=== PATIENT | male | born 1955 | race Caucasian/White ===

== ENCOUNTER 2017-06-23 15:57 | Inpatient (IN) | payer OTHER ==
[~2017-06-23] VITALS: Ht 182.9 cm; Wt 99.4 kg
[2017-06-23 19:51] LABS: BASOPHIL # 0.1 10^3/ul (0.0-0.1); BASOPHILS % 0.9 % (0.0-2.0); EOSINOPHILS # 0.3 10^3/ul (0.0-0.5); EOSINOPHILS % 3.4 % (0.0-7.0); HEMATOCRIT 40.8 % (42.0-52.0); HEMOGLOBIN 12.8 g/dl (14.0-18.0); LYMPHOCYTES # 2.1 10^3/ul (0.8-2.9); LYMPHOCYTES % 27.1 % (15.0-51.0); MEAN CORPUSCULAR HEMOGLOBIN 26.2 pg (29.0-33.0); MEAN CORPUSCULAR HGB CONC 31.4 g/dl (32.0-37.0); MEAN CORPUSCULAR VOLUME 83.4 fl (82.0-101.0); MEAN PLATELET VOLUME 10.7 fl (7.4-10.4); MONOCYTE # 0.5 10^3/ul (0.3-0.9); MONOCYTES % 6.6 % (0.0-11.0); NEUTROPHIL # 4.8 10^3/ul (1.6-7.5); NEUTROPHILS % 61.7 % (39.0-77.0); PLATELET COUNT 247 10^3/UL (140-415); RED BLOOD COUNT 4.89 10^6/ul (4.70-6.10); WHITE BLOOD COUNT 7.8 10^3/ul (4.8-10.8)
[2017-06-23 20:19] LABS: CALCIUM 9.1 mg/dl (8.4-10.2); CREATININE 1.03 mg/dl (0.61-1.24); POTASSIUM 4.4 mmol/L (3.5-5.1)
--- NOTE | 2017-06-23 20:21 | RADRPT ---
PROCEDURE: XR Chest. CLINICAL INDICATION: Chest Pain. TECHNIQUE: Single frontal view of the chest was obtained COMPARISON: None FINDINGS: The heart is enlarged. There is mild pulmonary vascular congestion. No focal consolidations, pleural effusions, or pneumoth orax. Chronic appearing left-sided rib fractures are present. Degenerative changes of the spine and should er joints are noted. IMPRESSION: 1. Cardiomegaly with mild pulmonary vascular congestion. RPTAT:AAJJ Physician Bryant Date Time Electronically viewed and signed by Physician Bryant on 06/23/2017 20:21 QL/
[2017-06-23 20:24] LABS: URINE BLOOD (Dip) POC Trace-lysed (NEGATIVE)
[2017-06-23 20:31] LABS: TROPONIN-I 0.032 ng/ml (0.00-0.12)
[2017-06-23 20:50] LABS: ADD UMIC YES; UR ASCORBIC ACID NEGATIVE (NEGATIVE); UR BACTERIA FEW /HPF (NONE SEEN); UR BILIRUBIN (Dip) NEGATIVE (NEGATIVE); UR BLOOD (Dip) NEGATIVE (NEGATIVE); UR CLARITY CLEAR (CLEAR); UR COLOR YELLOW (YELLOW); UR GLUCOSE (Dip) NEGATIVE (NEGATIVE); UR KETONES (Dip) NEGATIVE (NEGATIVE); UR LEUKOCYTE ESTERASE (Dip) NEGATIVE Leu/ul (NEGATIVE); UR MUCUS FEW /HPF (NONE SEEN); UR NITRITE (Dip) NEGATIVE (NEGATIVE); UR RBC 2 /HPF (0-5); UR SPECIFIC GRAVITY (Dip) 1.015 (1.003-1.030); UR TOTAL PROTEIN (Dip) 1+ mg/dl (NEGATIVE); UR UROBILINOGEN (Dip) 1+ mg/dL (NEGATIVE)
[2017-06-23] MEDS ORDERED: FUROSEMIDE 20 MG INJ IV ONE ×2 (21:30→22:30)
[2017-06-23] MEDS ORDERED: ACETAMINOPHEN 325 MG TAB PO PRN ×2 (22:30→23:00)
[2017-06-23] MEDS ORDERED: ONDANSETRON 4 MG INJ IV PRN (22:30)
--- NOTE | 2017-06-23 22:44 | ERD ---
ER Documentation Chief Complaint Chief Complaint Sob x 2 days, denies CP HPI This 62-year-old male presents for increasing shortness of breath for the last 2 days. He is taking Advil for chronic bilateral leg pain but does not have any other medications does not have primary care follow-up. As of breath is worse when laying down on exertion. He has no prior diagnosis of congestive heart failure. Denies chest pain. ROS All systems reviewed and are negative except as per history of present illness. Medications Home Meds No Active Prescriptions or Reported Meds Allergies Allergies: Coded Allergies: No Known Allergy (Unverified , 06/23/17) PMhx/Soc Medical and Surgical Hx: pt denies Medical Hx, pt denies Surgical Hx History of Surgery: No Anesthesia Reaction: No Hx Neurological Disorder: No Hx Respiratory Disorders: No Hx Cardiac Disorders: No Hx Psychiatric Problems: No Hx Miscellaneous Medical Probl: No Hx Alcohol Use: No Hx Substance Use: No Hx Tobacco Use: No Smoking Status: Former smoker Physical Exam Vitals Vital Signs Date Time Temp Pulse Resp B/P Pulse Ox O2 Delivery O2 Flow Rate FiO2 06/23/17 22:00 103 21 183/92 99 Nasal Cannula 2.0 06/23/17 21:30 94 19 149/84 99 Nasal Cannula 2.0 06/23/17 21:00 92 21 163/94 99 Nasal Cannula 2.0 06/23/17 20:09 Nasal Cannula 2 06/23/17 20:00 Nasal Cannula 2.0 06/23/17 19:55 98 23 182/93 99 Room Air 06/23/17 19:44 100 188/99 06/23/17 19:30 98.6 103 24 191/97 99 Room Air 06/23/17 16:19 99.3 105 20 192/88 98 Physical Exam Const: [] Mild distress, appears uncomfortable Head: Atraumatic Eyes: Normal Conjunctiva ENT: Normal External Ears, Nose and Mouth. Mucous membranes slightly dry Neck: Full range of motion..~ No meningismus. Resp: Clear to auscultation bilaterally, mild tachypnea Cardio: Regular rate and rhythm, no murmurs Abd: Soft, non tender, non distended. Normal bowel sounds Skin: No petechiae or rashes Back: No midline or flank tenderness Ext: No cyanosis, or edema Neur: Awake and alert oriented 3, no focal deficits Psych: Normal Mood and Affect Result Diagram: 06/23/17193906/23/171939 Results 24 hrs Laboratory Tests Test 06/23/17 19:40 06/23/17 20:15 06/23/17 20:23 White Blood Count 7.810^3/ul Red Blood Count 4.8910^6/ul Hemoglobin 12.8g/dl Hematocrit 40.8% Mean Corpuscular Volume 83.4fl Mean Corpuscular Hemoglobin 26.2pg Mean Corpuscular Hemoglobin Concent 31.4g/dl Red Cell Distribution Width 17.0% Platelet Count 21289^3/UL Mean Platelet Volume 10.7fl Neutrophils % 61.7% Lymphocytes % 27.1% Monocytes % 6.6% Eosinophils % 3.4% Basophils % 0.9% Nucleated Red Blood Cells % 0.0/100WBC Neutrophils # 4.810^3/ul Lymphocytes # 2.110^3/ul Monocytes # 0.510^3/ul Eosinophils # 0.310^3/ul Basophils # 0.110^3/ul Nucleated Red Blood Cells # 0.010^3/ul Sodium Level 142mmol/L Potassium Level 4.4mmol/L Chloride Level 108mmol/L Carbon Dioxide Level 24mmol/L Anion Gap 14 Blood Urea Nitrogen 15mg/dl Creatinine 1.03mg/dl Glucose Level 94mg/dl Calcium Level 9.1mg/dl Troponin I 0.032ng/ml B-Type Natriuretic Peptide 1810PG/ML Urine Color YELLOW Urine Clarity CLEAR Urine pH 6.0 Urine Specific [place] 1.015 Urine Ketones NEGATIVEmg/dL Urine Nitrite NEGATIVEmg/dL Urine Bilirubin NEGATIVEmg/dL Urine Urobilinogen 1+mg/dL Urine Leukocyte Esterase NEGATIVELeu/ul Urine Microscopic RBC 2/HPF Urine Microscopic WBC 1/HPF Urine Bacteria FEW/HPF Urine Mucus FEW/HPF Urine Hemoglobin NEGATIVEmg/dL Urine Glucose NEGATIVEmg/dL Urine Total Protein 1+mg/dl Bedside Urine pH (LAB) 6.0 Bedside Urine Protein (LAB) 1+ Bedside Urine Glucose (UA) Negative Bedside Urine Ketones (LAB) Negative Bedside Urine Blood Trace-lysed Bedside Urine Nitrite (LAB) Negative Bedside Urine Leukocyte Esterase (L Negative Current Medications Medications (Trade) Dose Ordered Sig/Froy Route PRN Reason Start Time Stop Time Status Last Admin Dose Admin Furosemide (Lasix) 20 mg ONCE ONCE IV 12/12/17 21:30 06/23/17 21:31 DC 06/23/17 21:51 Ondansetron HCl (Zofran Inj) 4 mg ER BRIDGE PRN IV NAUSEA AND/OR VOMITING 06/23/17 22:30 06/24/17 22:29 Acetaminophen (Tylenol Tab) 650 mg ER BRIDGE PRN PO MILD PAIN/FEVER 06/23/17 22:30 06/24/17 22:29 Furosemide (Lasix) 20 mg ONCE ONCE IV 06/23/17 22:30 06/23/17 22:31 DC Procedures/MDM Acute onset congestive heart failure patient with poor medical follow-up. Elevated BNP and evidence of congestive heart failure and chest x-ray. Patient given 20 mg of Lasix which produced no urine after an hour. Is also hypertensive with no prior diagnosis of hypertension. Blood pressure is not high enough to acutely lower with IV medications. Patient will be admitted for telemetry monitoring. On reassessment patient said he is actually had abdominal pain as well in his lower abdomen on standing. I have added on liver function tests, lipase and abdominal x-ray. Dr. Momin is admitting to telemetry. EKG interpretation: Sinus tachycardia rate 107, normal axis, no ST or T-wave changes concerning for acute ischemia, LVH, abnormal EKG tower erector helper interpretation: Normal sinus rhythm arrhythmia Chest x-ray interpretation: Engorgement of pulmonary vasculature consistent with congestive heart failure, cardiomegaly, no pneumothorax, no fractures, no infiltrates. Departure Diagnosis: Primary Impression: New onset of congestive heart failure Additional Impression: Respiratory distress Condition: Serious SOURAV VINES DO Jun 23, 2017 22:43
[2017-06-23] MEDS ORDERED: NACL 0.9% 3 ML SYG IV SCH (23:00)
[2017-06-23] MEDS ORDERED: ONDANSETRON 4 MG TAB PO PRN (23:00)
[2017-06-23] MEDS ORDERED: NITROGLYCERIN (SL) 0.4 MG TAB SL PRN (23:00)
[2017-06-23 23:04] LABS: BILIRUBIN,INDIRECT 0.9 mg/dl (0-1.1); BILIRUBIN,TOTAL 0.9 mg/dl (0.2-1.3); TOTAL PROTEIN 7.8 g/dl (6.1-8.1)
--- NOTE | 2017-06-23 23:44 | RADRPT ---
PROCEDURE: ABDOMINAL - 3 VIEWS CLINICAL INDICATION: 62-year-old male with lower abdominal pain. TECHNIQUE: AP supine and upright views of the abdomen were obtained. The images reviewed on a PA UGE workstation. COMPARISON: None. FINDINGS: The partially visualized lung bases are unremarkable. There is no free air beneath the hemidiaphragm s. The lateral aspect of the abdomen are not completely on the radiograph there is prominent gas wit hin the transverse colon without an obstructive pattern. No significant air-fluid levels are noted. Phleboliths are present within the pelvis. Mild degenerative changes are seen within the spine. IMPRESSION: 1. No evidence for bowel obstruction. 2. Degenerative changes within the spine. .Silvino Belcher MD, MD Date Time Electronically viewed and signed by .Silvino Belcher MD, MD on 06/23/2017 23:44 .M/
[2017-06-24] VITALS (13 sets, daily range): BP systolic 137–152; BP diastolic 71–84; PULSE 79–95; RESP 16–20; TEMP 98.5; Ht 182.9 cm; Wt 99.4 kg
--- NOTE | 2017-06-24 03:05 | HP ---
Date/Time of Note Date/Time of Note DATE: 06/24/17 TIME: 02:55 Assessment/Plan VTE Prophylaxis VTE Prophylaxis Intervention: SCD's Lines/Catheters IV [facility]from [facility] Saline Lock Assessment/Plan Chief Complaint/Hosp Course This is a 62 year old male being admitted to the telemetry floor for: #1 Dyspnea on exertion: suspected new onset chf. Afebrile and normal wbc count, making infection less likely. Elevated BNP of 1800 with cxr showing some evidence of congestion. He received two dose of Lasix 20 mg IV in the ed. He has been diuresing. At the current time his lungs are clear to auscultation and no edema noted of the lower extremities. Will continue fluid restriction. Will put patient on low salt diet. Initiate lisinopril 10mg once daily. Echo in the am. I do believe he is close to being euovolemic, so will reassess patient in AM before giving additional lasix dose. Consult cardio. Monitor urine output, fluid restriction of 1200 cc daily. Will check a1c, lipid, tsh. Trend cardiac enzymes first set was negative. #2 Dvt and gi prophylaxis: scds, no gi prophylaxis indicated Further treatment strategy will be implemented as per the clinical course. Problems: HPI/ROS Admit Date/Time Admit Date/Time Jun 23, 2017 at 22:24 Hx of Present Illness cc: chest pain, sob This 62-year-old male presents for increasing shortness of breath for the last 2 days. He is taking Advil for chronic bilateral leg pain but does not have any other medications does not have primary care follow-up. As of breath is worse when laying down and on exertion. Denies any swelling in his feet. Does not have any prior history of cardiac issues. He also was coughing, non productive. Denies any fevers allergies: nkda meds: advil ROS Const: As per HPI Eyes : No pain discharge or redness or change in visual acuity ENT: No pain, sore throat, congestion, congestion, dysphagia or discharge Respiratory: As per HPI Cardiovascular: As per HPI GI : no change in appetite, abdominal pain, nausea, vomiting, diarrhea, constipation, or change in the color his stool Genitourinary: No dysuria, hematuria, flank pain , discharge or CVA tenderness Musculoskeletal: No joint pain, back pain, neck pain, restricted range of motion in neck or joints Skin: No rash, bruising or hives Neuro: No headache, dizziness, syncope, seizure, focal weakness Endocrine: No polyuria, polydipsia, temperature intolerance Psych: No hallucination, depression, anxiety or suicidal ideation PMH/Family/Social Past Medical History chronic low back pain Past Surgical History Past Surgical Hx: no surgical history Family History Significant Family History: no pertinent family hx Social History Smoking Status: Current some day smoker Drug Use: none Exam/Review of Systems Vital Signs Vitals Vital Signs Date Time Temp Pulse Resp B/P Pulse Ox O2 Delivery O2 Flow Rate FiO2 06/24/17 02:49 97.6 89 20 137/71 99 Nasal Cannula 2.0 Exam Exam General: Patient is well-developed well-nourished The patient is alert oriented -3 lying comfortably in bed. HEENT: Atraumatic, normocephalic. The pupils are equal, round and reactive. Extraocular motor are intact Neck: Supple with full range of motion. No rigidity or meningismus Chest: Nontender Lungs: Clear to auscultation bilaterally no crackles rales or wheezing Heart: Normal S1-S2, Regular rhythm and rate, no overt murmurs appreciated Abdomen: Soft , nontender, nondistended , bowel sounds are present. No guarding no rebound tenderness , No masses or organomegaly. No costovertebral temporal angle mass Extremities: Normal to inspection, no edema no cyanosis Neurologic: Normal mental status, speech normal, cranial nerves II through XII are intact, motor and sensory are intact, no focal weakness Additional Comments PROCEDURE: XR Chest. CLINICAL INDICATION: Chest Pain. TECHNIQUE: Single frontal view of the chest was obtained COMPARISON: None FINDINGS: The heart is enlarged. There is mild pulmonary vascular congestion. No focal consolidations, pleural effusions, or pneumothorax. Chronic appearing left-sided rib fractures are present. Degenerative changes of the spine and shoulder joints are noted. IMPRESSION: 1. Cardiomegaly with mild pulmonary vascular congestion. RPTAT:AAJJ Physician Bryant Date Time Electronically viewed and signed by Yary Vasquez Physician on 06/23/2017 20:21 QL/ CC: SOURAV VINES DO EKG: Sinus tachycardia rate 107, normal axis, no ST or T-wave changes concerning for acute ischemia, LVH, above as per ED physician documentationROCEDURE: ABDOMINAL - 3 VIEWS CLINICAL INDICATION: 62-year-old male with lower abdominal pain. TECHNIQUE: AP supine and upright views of the abdomen were obtained. The images reviewed on a PACS workstation. COMPARISON: None. FINDINGS: The partially visualized lung bases are unremarkable. There is no free air beneath the hemidiaphragms. The lateral aspect of the abdomen are not completely on the radiograph there is prominent gas within the transverse colon without an obstructive pattern. No significant air-fluid levels are noted. Phleboliths are present within the pelvis. Mild degenerative changes are seen within the spine. IMPRESSION: 1. No evidence for bowel obstruction. 2. Degenerative changes within the spine. .Silvino Belcher MD, MD Date Time Electronically viewed and signed by .Silvino Belcher MD, MD on 06/23/2017 23:44 .M/ CC: SOURAV VINES DO Labs Result Diagram: 06/23/17193906/23/171939 Medications Medications Current Medications Ondansetron HCl (Zofran Tab) 4 mg Q6H PRN PO NAUSEA AND/OR VOMITING; Start 06/28 at 23:00 Nitroglycerin (Nitroglycerin (Sl Tab) 0.4 Mg) 1 tab Q5M PRN SL CHEST PAIN; Start 06/23/17 at 23:00 Acetaminophen (Tylenol Tab) 650 mg Q6H PRN PO PAIN LEVEL 1-3 OR FEVER; Start 06/23/17 at 23:00 Lisinopril (Zestril) 10 mg DAILY PO ; Start 06/24/17 at 09:00 EZEQUIEL FLORES Jun 24, 2017 03:04
[2017-06-24 04:09] LABS: CK-MB 1.39 ng/ml (0.0-2.4); TROPONIN-I 0.027 ng/ml (0.00-0.12)
[2017-06-24] MEDS: LISINOPRIL 10 MG TAB PO SCH (08:41)
[2017-06-24 09:36] LABS: BASOPHIL # 0.1 10^3/ul (0.0-0.1); BASOPHILS % 0.9 % (0.0-2.0); EOSINOPHILS # 0.3 10^3/ul (0.0-0.5); EOSINOPHILS % 3.9 % (0.0-7.0); HEMATOCRIT 41.9 % (42.0-52.0); HEMOGLOBIN 12.9 g/dl (14.0-18.0); LYMPHOCYTES # 1.4 10^3/ul (0.8-2.9); LYMPHOCYTES % 22.3 % (15.0-51.0); MEAN CORPUSCULAR HEMOGLOBIN 25.9 pg (29.0-33.0); MEAN CORPUSCULAR HGB CONC 30.8 g/dl (32.0-37.0); MEAN PLATELET VOLUME 10.6 fl (7.4-10.4); MONOCYTE # 0.5 10^3/ul (0.3-0.9); NEUTROPHIL # 4.2 10^3/ul (1.6-7.5); NEUTROPHILS % 65.6 % (39.0-77.0); PLATELET COUNT 255 10^3/UL (140-415); RED BLOOD COUNT 4.99 10^6/ul (4.70-6.10); RED CELL DISTRIBUTION WIDTH 16.7 % (11.5-14.5); WHITE BLOOD COUNT 6.4 10^3/ul (4.8-10.8)
[2017-06-24 09:50] LABS: ALBUMIN 3.8 g/dl (3.3-4.9); ALBUMIN/GLOBULIN RATIO 1.02; BILIRUBIN,INDIRECT 2.1 mg/dl (0-1.1); BILIRUBIN,TOTAL 2.1 mg/dl (0.2-1.3); CALCIUM 9.3 mg/dl (8.4-10.2); CREATININE 1.1 mg/dl (0.61-1.24); MAGNESIUM 1.9 mg/dl (1.7-2.5); POTASSIUM 4.1 mmol/L (3.5-5.1); TOTAL PROTEIN 7.5 g/dl (6.1-8.1)
[2017-06-24 10:15] LABS: TROPONIN-I 0.027 ng/ml (0.00-0.12)
[2017-06-24 10:18] LABS: CK-MB 1.25 ng/ml (0.0-2.4)
--- NOTE | 2017-06-24 16:05 | PN ---
Date/Time of Note Date/Time of Note DATE: 06/24/17 TIME: 16:05 Assessment/Plan VTE Prophylaxis VTE Prophylaxis Intervention: SCD's Lines/Catheters IV [facility] Saline Lock Urinary Cath still in place: No Assessment/Plan Assessment/Plan 1. New onset congestive heart failure - Cardiology on board and recommendations appreciated. Aspirin and beta hernan added - ECHO ordered and results pending - Plans for lexiscan stress test as well. - BNP 1800 - monitor 1/0 and daily weights 2. Disposition - Continue monitoring in telemetry pending complete cardiac workup Subjective 24 Hr Interval Summary Free Text/Dictation Patient states he's feeling better since urinating more frequently. Denies any chest pain, palpitations, dizziness, nausea, vomiting, or abdominal issues. Exam/Review of Systems Vital Signs Vitals Vital Signs Date Time Temp Pulse Resp B/P Pulse Ox O2 Delivery O2 Flow Rate FiO2 06/24/17 15:27 98.0 80 16 141/72 100 06/24/17 08:00 Nasal Cannula 2.0 Intake and Output 06/23/17 06/23/17 06/24/17 15:00 23:00 07:00 Intake Total 400 ml Output Total 750 ml Balance -350 ml Exam General: Patient resting comfortable. in no acute respiratory distress HEENT: NC/AT, PERRL, EOM intact Neck: Supple with full range of motion. No rigidity or meningismus Lungs: Clear to auscultation bilaterally no crackles rales or wheezing Heart: Normal S1-S2, Regular rhythm and rate, no murmurs appreciated Abdomen: Soft , nontender, nondistended , bowel sounds are present. No guarding no rebound tenderness Extremities: Normal to inspection, no edema no cyanosis Neurologic: Normal mental status, no focal weakness Results Result Diagram: 06/24/17 0843 06/24/17 0843 Results 24 hrs Laboratory Tests Test 06/23/17 19:40 06/23/17 20:15 06/23/17 20:23 06/24/17 03:05 White Blood Count 7.8 # Red Blood Count 4.89 Hemoglobin 12.8 L Hematocrit 40.8 L Mean Corpuscular Volume 83.4 Mean Corpuscular Hemoglobin 26.2 L Mean Corpuscular Hemoglobin Concent 31.4 L Red Cell Distribution Width 17.0 #H Platelet Count 247 Mean Platelet Volume 10.7 #H Neutrophils % 61.7 Lymphocytes % 27.1 Monocytes % 6.6 Eosinophils % 3.4 Basophils % 0.9 Nucleated Red Blood Cells % 0.0 Neutrophils # 4.8 Lymphocytes # 2.1 Monocytes # 0.5 Eosinophils # 0.3 Basophils # 0.1 Nucleated Red Blood Cells # 0.0 Sodium Level 142 Potassium Level 4.4 Chloride Level 108 Carbon Dioxide Level 24 Anion Gap 14 Blood Urea Nitrogen 15 Creatinine 1.03 Glucose Level 94 Calcium Level 9.1 Total Bilirubin 0.9 Direct Bilirubin 0.00 Indirect Bilirubin 0.9 Aspartate Amino Transf (AST/SGOT) 21 Alanine Aminotransferase (ALT/SGPT) 27 Alkaline Phosphatase 63 Troponin I 0.032 0.027 B-Type Natriuretic Peptide 1810 H Total Protein 7.8 Albumin 4.0 Lipase 44 Urine Color YELLOW Urine Clarity CLEAR Urine pH 6.0 Urine Specific [place] 1.015 Urine Ketones NEGATIVE Urine Nitrite NEGATIVE Urine Bilirubin NEGATIVE Urine Urobilinogen 1+ H Urine Leukocyte Esterase NEGATIVE Urine Microscopic RBC 2 Urine Microscopic WBC 1 Urine Bacteria FEW A Urine Mucus FEW A Urine Hemoglobin NEGATIVE Urine Glucose NEGATIVE Urine Total Protein 1+ H Bedside Urine pH (LAB) 6.0 Bedside Urine Protein (LAB) 1+ H Bedside Urine Glucose (UA) Negative Bedside Urine Ketones (LAB) Negative Bedside Urine Blood Trace-lysed H Bedside Urine Nitrite (LAB) Negative Bedside Urine Leukocyte Esterase (L Negative Creatine Kinase 101 Creatine Kinase Index 1.4 Creatinine Kinase MB (Mass) 1.39 Test 06/24/17 08:43 White Blood Count 6.4 Red Blood Count 4.99 Hemoglobin 12.9 L Hematocrit 41.9 L Mean Corpuscular Volume 84.0 Mean Corpuscular Hemoglobin 25.9 L Mean Corpuscular Hemoglobin Concent 30.8 L Red Cell Distribution Width 16.7 H Platelet Count 255 Mean Platelet Volume 10.6 H Neutrophils % 65.6 Lymphocytes % 22.3 Monocytes % 7.0 Eosinophils % 3.9 Basophils % 0.9 Nucleated Red Blood Cells % 0.0 Neutrophils # 4.2 Lymphocytes # 1.4 Monocytes # 0.5 Eosinophils # 0.3 Basophils # 0.1 Nucleated Red Blood Cells # 0.0 Sodium Level 143 Potassium Level 4.1 Chloride Level 104 Carbon Dioxide Level 29 Anion Gap 14 Blood Urea Nitrogen 15 Creatinine 1.10 Glucose Level 87 Hemoglobin A1c 5.8 Calcium Level 9.3 Magnesium Level 1.9 Total Bilirubin 2.1 H Direct Bilirubin 0.00 Indirect Bilirubin 2.1 H Aspartate Amino Transf (AST/SGOT) 19 Alanine Aminotransferase (ALT/SGPT) 29 Alkaline Phosphatase 58 Creatine Kinase 90 Creatine Kinase Index 1.4 Creatinine Kinase MB (Mass) 1.25 Troponin I 0.027 Total Protein 7.5 Albumin 3.8 Globulin 3.70 H Albumin/Globulin Ratio 1.02 Triglycerides Level 119 Cholesterol Level 153 LDL Cholesterol, Calculated 110 HDL Cholesterol 19 L Cholesterol/HDL Ratio 8.0 Thyroid Stimulating Hormone (TSH) 2.000 Medications Medications Current Medications Ondansetron HCl (Zofran Tab) 4 mg Q6H PRN PO NAUSEA AND/OR VOMITING; Start 06/28 at 23:00 Nitroglycerin (Nitroglycerin (Sl Tab) 0.4 Mg) 1 tab Q5M PRN SL CHEST PAIN; Start 06/23/17 at 23:00 Acetaminophen (Tylenol Tab) 650 mg Q6H PRN PO PAIN LEVEL 1-3 OR FEVER; Start 06/23/17 at 23:00 Lisinopril (Zestril) 10 mg DAILY PO Last administered on 06/24/17 08:41; Admin Dose 10 MG; Start 06/24/17 at 09:00 RANDALL BOO MD Jun 24, 2017 16:05
--- NOTE | 2017-06-24 16:08 | CONS ---
Date/Time of Note Date/Time of Note DATE: 06/24/17 TIME: 16:07 Assessment/Plan Assessment/Plan Additional Assessment/Plan 62 yo with new onset CHF - will add BB, ASA - ECHO and Taryn Stress test to follow # [id number] Consultation Date/Type/Reason Admit Date/Time Jun 23, 2017 at 22:24 Initial Consult Date Exam/Review of Systems Vital Signs Vitals Vital Signs Date Time Temp Pulse Resp B/P Pulse Ox O2 Delivery O2 Flow Rate FiO2 06/24/17 15:27 98.0 80 16 141/72 100 06/24/17 08:00 Nasal Cannula 2.0 Intake and Output 06/23/17 06/23/17 06/24/17 15:00 23:00 07:00 Intake Total 400 ml Output Total 750 ml Balance -350 ml Results Result Diagram: 06/24/17 0843 06/24/17 0843 Results 24 hrs Laboratory Tests Test 06/23/17 19:40 06/23/17 20:15 06/23/17 20:23 06/24/17 03:05 White Blood Count 7.8 # Red Blood Count 4.89 Hemoglobin 12.8 L Hematocrit 40.8 L Mean Corpuscular Volume 83.4 Mean Corpuscular Hemoglobin 26.2 L Mean Corpuscular Hemoglobin Concent 31.4 L Red Cell Distribution Width 17.0 #H Platelet Count 247 Mean Platelet Volume 10.7 #H Neutrophils % 61.7 Lymphocytes % 27.1 Monocytes % 6.6 Eosinophils % 3.4 Basophils % 0.9 Nucleated Red Blood Cells % 0.0 Neutrophils # 4.8 Lymphocytes # 2.1 Monocytes # 0.5 Eosinophils # 0.3 Basophils # 0.1 Nucleated Red Blood Cells # 0.0 Sodium Level 142 Potassium Level 4.4 Chloride Level 108 Carbon Dioxide Level 24 Anion Gap 14 Blood Urea Nitrogen 15 Creatinine 1.03 Glucose Level 94 Calcium Level 9.1 Total Bilirubin 0.9 Direct Bilirubin 0.00 Indirect Bilirubin 0.9 Aspartate Amino Transf (AST/SGOT) 21 Alanine Aminotransferase (ALT/SGPT) 27 Alkaline Phosphatase 63 Troponin I 0.032 0.027 B-Type Natriuretic Peptide 1810 H Total Protein 7.8 Albumin 4.0 Lipase 44 Urine Color YELLOW Urine Clarity CLEAR Urine pH 6.0 Urine Specific [place] 1.015 Urine Ketones NEGATIVE Urine Nitrite NEGATIVE Urine Bilirubin NEGATIVE Urine Urobilinogen 1+ H Urine Leukocyte Esterase NEGATIVE Urine Microscopic RBC 2 Urine Microscopic WBC 1 Urine Bacteria FEW A Urine Mucus FEW A Urine Hemoglobin NEGATIVE Urine Glucose NEGATIVE Urine Total Protein 1+ H Bedside Urine pH (LAB) 6.0 Bedside Urine Protein (LAB) 1+ H Bedside Urine Glucose (UA) Negative Bedside Urine Ketones (LAB) Negative Bedside Urine Blood Trace-lysed H Bedside Urine Nitrite (LAB) Negative Bedside Urine Leukocyte Esterase (L Negative Creatine Kinase 101 Creatine Kinase Index 1.4 Creatinine Kinase MB (Mass) 1.39 Test 06/24/17 08:43 White Blood Count 6.4 Red Blood Count 4.99 Hemoglobin 12.9 L Hematocrit 41.9 L Mean Corpuscular Volume 84.0 Mean Corpuscular Hemoglobin 25.9 L Mean Corpuscular Hemoglobin Concent 30.8 L Red Cell Distribution Width 16.7 H Platelet Count 255 Mean Platelet Volume 10.6 H Neutrophils % 65.6 Lymphocytes % 22.3 Monocytes % 7.0 Eosinophils % 3.9 Basophils % 0.9 Nucleated Red Blood Cells % 0.0 Neutrophils # 4.2 Lymphocytes # 1.4 Monocytes # 0.5 Eosinophils # 0.3 Basophils # 0.1 Nucleated Red Blood Cells # 0.0 Sodium Level 143 Potassium Level 4.1 Chloride Level 104 Carbon Dioxide Level 29 Anion Gap 14 Blood Urea Nitrogen 15 Creatinine 1.10 Glucose Level 87 Hemoglobin A1c 5.8 Calcium Level 9.3 Magnesium Level 1.9 Total Bilirubin 2.1 H Direct Bilirubin 0.00 Indirect Bilirubin 2.1 H Aspartate Amino Transf (AST/SGOT) 19 Alanine Aminotransferase (ALT/SGPT) 29 Alkaline Phosphatase 58 Creatine Kinase 90 Creatine Kinase Index 1.4 Creatinine Kinase MB (Mass) 1.25 Troponin I 0.027 Total Protein 7.5 Albumin 3.8 Globulin 3.70 H Albumin/Globulin Ratio 1.02 Triglycerides Level 119 Cholesterol Level 153 LDL Cholesterol, Calculated 110 HDL Cholesterol 19 L Cholesterol/HDL Ratio 8.0 Thyroid Stimulating Hormone (TSH) 2.000 Medications Medications Current Medications Ondansetron HCl (Zofran Tab) 4 mg Q6H PRN PO NAUSEA AND/OR VOMITING; Start 06/28 at 23:00 Nitroglycerin (Nitroglycerin (Sl Tab) 0.4 Mg) 1 tab Q5M PRN SL CHEST PAIN; Start 06/23/17 at 23:00 Acetaminophen (Tylenol Tab) 650 mg Q6H PRN PO PAIN LEVEL 1-3 OR FEVER; Start 06/23/17 at 23:00 Lisinopril (Zestril) 10 mg DAILY PO Last administered on 06/24/17t 08:41; Admin Dose 10 MG; Start 06/24/17 at 09:00 ROBERTO CARLOS SAPP MD Jun 24, 2017 16:08
--- NOTE | 2017-06-24 17:08 | RADRPT ---
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 Physician: EZEQUIEL FLORES Quality: Good Procedures: Transthoracic echocardiogram with complete 2D, M-Mode, and doppler examination. Indications: new onset Congestive Heart Failure. 2D/M Mode Doppler Measurement Value Normal Ranges Measurement Value Normal Ranges LVIDd 2D 6.5 3.5 - 5.6 cm AV Peak Danis 1.7 m/sec LVIDs 2D 4.8 2.1 - 4.1 cm AV Peak PG 12.1 mmHg LVPWd 2D 1.1 0.6 - 1.1 cm AI Peak PG 97.8 mmHg IVSd 2D 1.0 0.6 - 1.1 cm AI Peak Danis 4.9 m/sec AoR Diam 2D 2.9 2.0 - 3.7 cm AI PHT 266.9 msec EDV 2D 215.8 cm3 LVOT Peak Danis 1.6 m/sec ESV 2D 108.7 cm3 LVOT Peak PG 10.2 mmHg LA Dimen 2D 4.8 2.3 - 4.0 cm MV E Peak Danis 1.3 m/sec MV A Peak Danis 0.4 m/sec MV E/A 3.3 MV Decel Time 81 msec MV Decel [place] 16 MV E/A 3.3 TR Peak Danis 2.7 m/sec TR Peak PG 29.5 mmHg RVSP 38.0 mmHg Findings Left Ventricle: Lower limits of normal systolic function. Mild concentric left ventricular hypertrophy. Moderate enlargement of left ventricle cavity. Ejection fraction is visually estimated at 50 %. Right Ventricle: Normal right ventricular size. Normal right ventricular systolic function. Left Atrium: There is moderate enlargement of left atrium. Right Atrium: The right atrium is normal in size. Mitral Valve: Mitral valve leaflets appear mildly thickened. Mild mitral annular calcification. Moderate mitral valve regurgitation. Aortic Valve: Aortic cusps appear mildly calcified. Moderate aortic valve regurgitation. Tricuspid Valve: Normal appearance of the tricuspid valve. Estimated peak PA systolic pressure 38 mmHg. There is mild tricuspid regurgitation. Pulmonic Valve: Normal pulmonic valve appearance. Pericardium: Normal pericardium with no significant pericardial effusion. Aorta: Normal aortic root. IVC: Dilated IVC with respiratory collapse consistent with elevated right atrial pressure. Conclusions Lower limits of normal systolic function. Mild concentric left ventricular hypertrophy. Moderate enlargement of left ventricle cavity. Ejection fraction is visually estimated at 50 %. Mitral valve leaflets appear mildly thickened. Mild mitral annular calcification. Moderate mitral valve regurgitation. Aortic cusps appear mildly calcified. Moderate aortic valve regurgitation. Normal appearance of the tricuspid valve. Estimated peak PA systolic pressure 38 mmHg. There is mild tricuspid regurgitation. Electronically Signed By: Ángel Villanueva 24-Jun-2017 17:07:11 -0800 Patient Name: JAYASHREE VOGEL Study Date: 24-Jun-[id number]
--- NOTE | 2017-06-24 20:29 | CONS ---
DATE OF ADMISSION: 06/23/2017 DATE OF CONSULTATION: 06/24/2017 TYPE OF CONSULTATION: Cardiology. REFERRING PHYSICIAN: Michele Momin MD REASON FOR EVALUATION: Chest pain, dyspnea on exertion. HISTORY OF PRESENT ILLNESS: Mr. Combs is a 62 year old with history of hypertension and history of lower extremity pain who comes to the hospital now for evaluation of shortness of breath. The p attom does not have any history of heart disease but he does have history of tobacco use in the pas t as ____. The patient does not appear to be experiencing pain now but he is in heart failure. I t himalikk currently the plan is for the patient to have a 2D echo which I will follow up once the results are available. Given the nonspecific onset of chest pain and shortness of breath, I think it will be reasonable to risk stratify the patient with a stress test which we will facilitate for tomorrow. PAST MEDICAL HISTORY: History of back pain, history of tobacco use, history of hypertension. ALLERGIES: NO KNOWN DRUG ALLERGIES. SOCIAL HISTORY: The patient previously smoked. ____. Does not drink. Does not use any drugs. FAMILY HISTORY: Negative for sudden cardiac and premature coronary artery disease. MEDICATIONS: Preadmission, the patient was on: 1. Advil. 2. The patient has been on lisinopril 20 mg p.o. once a day. 3. Nitroglycerin. 4. Ondansetron. REVIEW OF SYSTEMS: CONSTITUTIONAL: No fevers, no chills. Has shortness of breath. HEENT: No changes in vision or hearing. CARDIAC: No chest pain reported. RESPIRATORY: Short of breath secondary to ____. GASTROINTESTINAL: No nausea, vomiting, diarrhea, constipation. GENITOURINARY: No dysuria, hematuria, or difficulty with urination. NEUROLOGIC: No focal neuro deficits. HEMATOLOGIC: No easy bruising. PSYCHIATRIC: No history of psychiatric illness. ECG reviewed by me shows sinus rhythm with some nonspecific ST-T changes and significant LVH. LABORATORY DATA: White blood cell count 6.4, hemoglobin is 12.9, platelets 255. INR is 1.1. Sodiu m 143, potassium 4.1, BUN is 15, creatinine 1.1. Troponin is negative at 0.027. ASSESSMENT AND PLAN: 1. Shortness of breath. The patient has new onset of dyspnea with elevated BNP. We will facilitat e a 2D echo review once available. The patient's chest x-ray shows cardiomegaly without vascular co ngestion. As such, I think stress test would be warranted to rule out cardiomyopathy with reversibl e cause. We will also add a beta hernan and aspirin to his regimen. 2. Shortness of breath, likely multifactorial. CHF is suspected. Continue diuresis. The patient is on Lasix. 3. Congestive heart failure, acute on chronic. We will estimate ejection fraction from a 2D echo. 4. History of positive tobacco use, discontinued in 1984. 5. History of back pain, defer to primary team. I would like to thank Dr. Moimn for referring this patient for my evaluation. Dictated By: ROBERTO CARLOS SAPP MD ML/NTS Conf#: [id number] DID#: [id number] CC: MICHELE MOMIN MD;*EndCC*
[2017-06-25] VITALS (11 sets, daily range): BP systolic 130–158; BP diastolic 67–74; PULSE 74–97; RESP 19–20
[2017-06-25 09:08] LABS: BASOPHILS % 0.6 % (0.0-2.0); EOSINOPHILS # 0.3 10^3/ul (0.0-0.5); EOSINOPHILS % 3.8 % (0.0-7.0); HEMATOCRIT 43.7 % (42.0-52.0); HEMOGLOBIN 13.6 g/dl (14.0-18.0); LYMPHOCYTES # 1.4 10^3/ul (0.8-2.9); LYMPHOCYTES % 20.8 % (15.0-51.0); MEAN CORPUSCULAR HGB CONC 31.1 g/dl (32.0-37.0); MEAN CORPUSCULAR VOLUME 83.4 fl (82.0-101.0); MEAN PLATELET VOLUME 10.7 fl (7.4-10.4); MONOCYTE # 0.5 10^3/ul (0.3-0.9); MONOCYTES % 6.7 % (0.0-11.0); NEUTROPHIL # 4.7 10^3/ul (1.6-7.5); NEUTROPHILS % 67.8 % (39.0-77.0); PLATELET COUNT 266 10^3/UL (140-415); RED BLOOD COUNT 5.24 10^6/ul (4.70-6.10); RED CELL DISTRIBUTION WIDTH 16.6 % (11.5-14.5); WHITE BLOOD COUNT 6.9 10^3/ul (4.8-10.8)
[2017-06-25 09:30] LABS: ALBUMIN 3.8 g/dl (3.3-4.9); CALCIUM 9.3 mg/dl (8.4-10.2); CREATININE 1.15 mg/dl (0.61-1.24); PHOSPHORUS 4.3 mg/dl (2.5-4.9); POTASSIUM 4.7 mmol/L (3.5-5.1)
--- NOTE | 2017-06-25 12:13 | PN ---
Date/Time of Note Date/Time of Note DATE: 06/25/17 TIME: 12:13 Assessment/Plan VTE Prophylaxis VTE Prophylaxis Intervention: SCD's Lines/Catheters [facility] Saline Lock Urinary Cath still in place: No Assessment/Plan Assessment/Plan 1. Acute on chronic congestive heart failure - Cardiology on board and recommendations appreciated. Aspirin and beta hernan added - ECHO shows EF 55% - Plans for Lexiscan stress test today - BNP 1800 - monitor 1/0 and daily weights 2. SOB secondary to #1 - Improving 3. History of tobacco abuse 4. Disposition - Continue monitoring in telemetry pending complete cardiac workup Subjective 24 Hr Interval Summary Free Text/Dictation Patient states feeling better and respiratory has improved. Denies any episodes of chest pain, shortness of breath, nausea, vomiting. or abdominal pain Exam/Review of Systems Vital Signs Vitals Vital Signs Date Time Temp Pulse Resp B/P Pulse Ox O2 Delivery O2 Flow Rate FiO2 06/25/17 11:51 98.1 74 20 139/69 95 06/24/17 20:00 Nasal Cannula 2.0 Intake and Output 06/24/17 06/24/17 06/25/17 14:59 22:59 06:59 Intake Total 660 ml 350 ml Output Total 750 ml 680 ml Balance -90 ml -330 ml Exam General: Patient resting comfortable. in no acute respiratory distress HEENT: NC/AT, PERRL, EOM intact Neck: Supple with full range of motion. Lungs: Clear to auscultation bilaterally, no crackles rales or wheezing Heart: Normal S1-S2, Regular rhythm and rate, no murmurs appreciated Abdomen: Soft , nontender, nondistended , bowel sounds are present. No guarding no rebound tenderness Extremities: Normal to inspection, no edema no cyanosis Neurologic: Normal mental status, no focal weakness Results Result Diagram: 06/25/17 0812 06/25/17 0812 Results 24 hrs Laboratory Tests Test 06/25/17 08:12 White Blood Count 6.9 Red Blood Count 5.24 Hemoglobin 13.6 L Hematocrit 43.7 Mean Corpuscular Volume 83.4 Mean Corpuscular Hemoglobin 26.0 L Mean Corpuscular Hemoglobin Concent 31.1 L Red Cell Distribution Width 16.6 H Platelet Count 266 Mean Platelet Volume 10.7 H Neutrophils % 67.8 Lymphocytes % 20.8 Monocytes % 6.7 Eosinophils % 3.8 Basophils % 0.6 Nucleated Red Blood Cells % 0.0 Neutrophils # 4.7 Lymphocytes # 1.4 Monocytes # 0.5 Eosinophils # 0.3 Basophils # 0.0 Nucleated Red Blood Cells # 0.0 Sodium Level 142 Potassium Level 4.7 Chloride Level 104 Carbon Dioxide Level 26 Anion Gap 17 H Blood Urea Nitrogen 21 H Creatinine 1.15 Glucose Level 92 Calcium Level 9.3 Phosphorus Level 4.3 Magnesium Level 2.0 Albumin 3.8 Medications Medications Current Medications Ondansetron HCl (Zofran Tab) 4 mg Q6H PRN PO NAUSEA AND/OR VOMITING; Start 06/28 at 23:00 Nitroglycerin (Nitroglycerin (Sl Tab) 0.4 Mg) 1 tab Q5M PRN SL CHEST PAIN; Start 06/23/17 at 23:00 Acetaminophen (Tylenol Tab) 650 mg Q6H PRN PO PAIN LEVEL 1-3 OR FEVER; Start 06/23/17 at 23:00 Lisinopril (Zestril) 10 mg DAILY PO Last administered on 06/24/17 08:41; Admin Dose 10 MG; Start 06/24/17 at 09:00 Aspirin (Aspirin) 81 mg DAILY PO ; Start 06/25/17 at 09:00 Carvedilol (Coreg) 6.25 mg BID PO Last administered on 06/24/17 21:05; Admin Dose 6.25 MG; Start 06/24/17 at 21:00 RANDALL BOO MD Jun 25, 2017 12:13
[2017-06-25] MEDS ORDERED: REGADENOSON 0.4 MG/5 ML SYG ONE (13:26)
--- NOTE | 2017-06-25 13:59 | CONS ---
Date/Time of Note Date/Time of Note DATE: 06/25/17 TIME: 13:55 Assessment/Plan Assessment/Plan Additional Assessment/Plan 1. Shortness of breath - new onset of dyspnea with elevated BNP. Stress test today. 2. Shortness of breath, likely multifactorial. CHF is suspected. Continue diuresis. The patient is on Lasix. BETTER NOW. 3. Congestive heart failure, acute on chronic. DIAST HF - EF 55%. 4. History of positive tobacco use, discontinued in 1984. 5. History of back pain, defer to primary team. Consultation Date/Type/Reason Admit Date/Time Jun 23, 2017 at 22:24 24 HR Interval Summary Free Text/Dictation NO acute events - awaiting Stress test today. ROS: No fever, no chills, no nausea, no vomiting, no diarrhea/constipation No recent weight changes No chest pain, no PND, no orthopnea No dizziness, blurred vision No thirst, no heat or cold intolerance Exam/Review of Systems Vital Signs Vitals Vital Signs Date Time Temp Pulse Resp B/P Pulse Ox O2 Delivery O2 Flow Rate FiO2 06/25/17 12:59 75 06/25/17 11:51 98.1 20 139/69 95 06/24/17 20:00 Nasal Cannula 2.0 Intake and Output 06/24/17 06/24/17 06/25/17 15:00 23:00 07:00 Intake Total 660 ml 350 ml Output Total 750 ml 680 ml Balance -90 ml -330 ml Exam ROS: No fever, no chills, no nausea, no vomiting, no diarrhea/constipation No recent weight changes No chest pain, no PND, no orthopnea BETTER SOB No dizziness, blurred vision No thirst, no heat or cold intolerance Results Result Diagram: 06/25/17 0812 06/25/17 0812 Results 24 hrs Laboratory Tests Test 06/25/17 08:12 White Blood Count 6.9 Red Blood Count 5.24 Hemoglobin 13.6 L Hematocrit 43.7 Mean Corpuscular Volume 83.4 Mean Corpuscular Hemoglobin 26.0 L Mean Corpuscular Hemoglobin Concent 31.1 L Red Cell Distribution Width 16.6 H Platelet Count 266 Mean Platelet Volume 10.7 H Neutrophils % 67.8 Lymphocytes % 20.8 Monocytes % 6.7 Eosinophils % 3.8 Basophils % 0.6 Nucleated Red Blood Cells % 0.0 Neutrophils # 4.7 Lymphocytes # 1.4 Monocytes # 0.5 Eosinophils # 0.3 Basophils # 0.0 Nucleated Red Blood Cells # 0.0 Sodium Level 142 Potassium Level 4.7 Chloride Level 104 Carbon Dioxide Level 26 Anion Gap 17 H Blood Urea Nitrogen 21 H Creatinine 1.15 Glucose Level 92 Calcium Level 9.3 Phosphorus Level 4.3 Magnesium Level 2.0 Albumin 3.8 Medications Medications Current Medications Ondansetron HCl (Zofran Tab) 4 mg Q6H PRN PO NAUSEA AND/OR VOMITING; Start 06/28 at 23:00 Nitroglycerin (Nitroglycerin (Sl Tab) 0.4 Mg) 1 tab Q5M PRN SL CHEST PAIN; Start 06/23/17 at 23:00 Acetaminophen (Tylenol Tab) 650 mg Q6H PRN PO PAIN LEVEL 1-3 OR FEVER; Start 06/23/17 at 23:00 Lisinopril (Zestril) 10 mg DAILY PO Last administered on 06/24/17 08:41; Admin Dose 10 MG; Start 06/24/17 at 09:00 Aspirin (Aspirin) 81 mg DAILY PO ; Start 06/25/17 at 09:00 Carvedilol (Coreg) 6.25 mg BID PO Last administered on 06/24/17 21:05; Admin Dose 6.25 MG; Start 06/24/17 at 21:00 ROBERTO CARLOS SAPP MD Jun 25, 2017 13:59
--- NOTE | 2017-06-25 16:55 | ECORPT ---
DATE OF SERVICE: 06/25/2017 LEXISCAN CARDIAC STRESS TEST REFERRING PHYSICIAN: Dr. Laurie Vines. REASON FOR ADMISSION: Chest pain, new onset CHF. PROCEDURE IN DETAIL: The patient was brought into the heart station. He had a successful Lexiscan injection. Heart rate was 88. Blood pressure was 142/78. The patient tolerated the injection. I maging portion is dictated separately. Dictated By: ROBERTO CARLOS SAPP MD ML/NTS Conf#: [id number] DID#: [id number] CC: LAURIE VINES MD;*EndCC*
--- NOTE | 2017-06-25 16:56 | RADRPT ---
PROCEDURE: Lexiscan myocardial perfusion study CLINICAL INDICATION: 62 -year-old patient complaining of chest pain. TECHNIQUE: Lexiscan 0.4 mg intravenously separate acquisition gated myocardial perfusion SPECT usi ng Tc 99m Myoview 29.6 mCi intravenously at stress and Tc-99m Myoview, 10.8 mCi intravenously at res t was performed using the rest/stress sequence. Poststress Myoview SPECT images were obtained in th e supine position. COMPARISON: No prior studies. FINDINGS: Perfusion images reveal a moderate size moderate in degree nonreversible perfusion defect in the inf eroapical, inferior and inferolateral lucero. Lexiscan post stress gated SPECT images demonstrate mild hypokinesis of the left ventricle. IMPRESSION: 1. The type and distribution of the scintigraphic abnormalities are most consistent with a moderate -sized nonreversible perfusion defect in the inferoapical, inferior and inferolateral lucero. 2. Mild hypokinesis of the left ventricle. 3. The left ventricle ejection fraction at stress is 40%. A call report was made to Dr. Villanueva at 03:16 p.m. on June 25, 2017. RPTAT: HH .Alba Fraser MD, MD Date Time Electronically viewed and signed by .Alba Fraser MD, MD on 06/25/2017 15:16 .L/
[2017-06-25] MEDS: ASPIRIN 81 MG TAB PO SCH (17:05)
[2017-06-25] MEDS: LISINOPRIL 10 MG TAB PO SCH (17:06)
[2017-06-26] VITALS (10 sets, daily range): BP systolic 123–133; BP diastolic 68–76; PULSE 77–90; RESP 18–19
[2017-06-26] MEDS: LISINOPRIL 10 MG TAB PO SCH (08:31)
[2017-06-26] MEDS: ASPIRIN 81 MG TAB PO SCH (08:32)
[2017-06-26 08:56] LABS: BASOPHIL # 0.1 10^3/ul (0.0-0.1); BASOPHILS % 0.9 % (0.0-2.0); EOSINOPHILS # 0.3 10^3/ul (0.0-0.5); EOSINOPHILS % 3.8 % (0.0-7.0); HEMATOCRIT 42.4 % (42.0-52.0); HEMOGLOBIN 13.5 g/dl (14.0-18.0); LYMPHOCYTES # 1.7 10^3/ul (0.8-2.9); LYMPHOCYTES % 21.6 % (15.0-51.0); MEAN CORPUSCULAR HEMOGLOBIN 26.3 pg (29.0-33.0); MEAN CORPUSCULAR HGB CONC 31.8 g/dl (32.0-37.0); MEAN CORPUSCULAR VOLUME 82.7 fl (82.0-101.0); MEAN PLATELET VOLUME 10.7 fl (7.4-10.4); MONOCYTE # 0.8 10^3/ul (0.3-0.9); MONOCYTES % 9.8 % (0.0-11.0); NEUTROPHIL # 4.9 10^3/ul (1.6-7.5); NEUTROPHILS % 63.5 % (39.0-77.0); PLATELET COUNT 267 10^3/UL (140-415); RED BLOOD COUNT 5.13 10^6/ul (4.70-6.10); RED CELL DISTRIBUTION WIDTH 16.6 % (11.5-14.5); WHITE BLOOD COUNT 7.7 10^3/ul (4.8-10.8)
[2017-06-26 09:28] LABS: ALBUMIN 3.7 g/dl (3.3-4.9); CALCIUM 9.2 mg/dl (8.4-10.2); CREATININE 1.04 mg/dl (0.61-1.24); PHOSPHORUS 3.9 mg/dl (2.5-4.9); POTASSIUM 4.4 mmol/L (3.5-5.1)
--- NOTE | 2017-06-26 17:48 | PN ---
Date/Time of Note Date/Time of Note DATE: 06/26/17 TIME: 17:45 Assessment/Plan VTE Prophylaxis VTE Prophylaxis Intervention: SCD's Lines/Catheters [facility] Saline Lock Urinary Cath still in place: No Assessment/Plan Assessment/Plan 1. Acute on chronic congestive heart failure - Cardiology on board and recommendations appreciated. continue on aspirin and beta hernan - ECHO shows EF 55% - Lexiscan showed moderate-sized nonreversible perfusion defect in the inferoapical, inferior and inferolateral lucero. EF 40%. - BNP 1800 - monitor 1/0 and daily weights 2. SOB- resolved 3. History of tobacco abuse 4. Disposition - Awaiting recommendations from cardiology. If remains stable will d/c in am Subjective 24 Hr Interval Summary Free Text/Dictation Patient states shortness of breath has resolved and no longer experiencing chest discomfort. No acute overnight events. Exam/Review of Systems Vital Signs Vitals Vital Signs Date Time Temp Pulse Resp B/P Pulse Ox O2 Delivery O2 Flow Rate FiO2 06/26/17 16:39 98.0 77 18 133/68 98 Room Air 06/25/17 20:00 2.0 Intake and Output 06/25/17 06/25/17 06/26/17 15:00 23:00 07:00 Intake Total 800 ml 300 ml Balance 800 ml 300 ml Exam General: Patient resting comfortable. in no acute respiratory distress. answering questions appropriately HEENT: NC/AT, PERRL, EOM intact Neck: Supple Lungs: Clear to auscultation bilaterally, no crackles rales or wheezing Heart: Normal S1-S2, Regular rhythm and rate, no murmurs appreciated Abdomen: Soft , nontender, nondistended , bowel sounds are present. No guarding no rebound tenderness Extremities: Normal to inspection, no edema no cyanosis Neurologic: Normal mental status, no focal weakness Results Result Diagram: 06/26/17 0810 06/26/17 0810 Results 24 hrs Laboratory Tests Test 06/26/17 08:10 White Blood Count 7.7 Red Blood Count 5.13 Hemoglobin 13.5 L Hematocrit 42.4 Mean Corpuscular Volume 82.7 Mean Corpuscular Hemoglobin 26.3 L Mean Corpuscular Hemoglobin Concent 31.8 L Red Cell Distribution Width 16.6 H Platelet Count 267 Mean Platelet Volume 10.7 H Neutrophils % 63.5 Lymphocytes % 21.6 Monocytes % 9.8 Eosinophils % 3.8 Basophils % 0.9 Nucleated Red Blood Cells % 0.0 Neutrophils # 4.9 Lymphocytes # 1.7 Monocytes # 0.8 Eosinophils # 0.3 Basophils # 0.1 Nucleated Red Blood Cells # 0.0 Sodium Level 139 Potassium Level 4.4 Chloride Level 105 Carbon Dioxide Level 25 Anion Gap 13 Blood Urea Nitrogen 26 H Creatinine 1.04 Glucose Level 100 Calcium Level 9.2 Phosphorus Level 3.9 Magnesium Level 2.0 Albumin 3.7 Medications Medications Current Medications Ondansetron HCl (Zofran Tab) 4 mg Q6H PRN PO NAUSEA AND/OR VOMITING; Start 06/28 at 23:00 Nitroglycerin (Nitroglycerin (Sl Tab) 0.4 Mg) 1 tab Q5M PRN SL CHEST PAIN; Start 06/23/17 at 23:00 Acetaminophen (Tylenol Tab) 650 mg Q6H PRN PO PAIN LEVEL 1-3 OR FEVER; Start 06/23/17 at 23:00 Lisinopril (Zestril) 10 mg DAILY PO Last administered on 06/26/17 08:31; Admin Dose 10 MG; Start 06/24/17 at 09:00 Aspirin (Aspirin) 81 mg DAILY PO Last administered on 06/26/17 08:32; Admin Dose 81 MG; Start 06/25/17 at 09:00 Carvedilol (Coreg) 6.25 mg BID PO Last administered on 06/26/17 08:31; Admin Dose 6.25 MG; Start 06/24/17 at 21:00 RANDALL BOO MD Jun 26, 2017 17:48
--- NOTE | 2017-06-26 17:54 | CONS ---
Date/Time of Note Date/Time of Note DATE: 06/26/17 TIME: 17:45 Assessment/Plan Assessment/Plan Chief Complaint/Hosp Course IMP: 1.CHF-systolic acute on chrionic by lexiscan revealing EF 40% 2.HTN 3.chest pain-improved with negative trops and lexiscan with scar but no ischemia /LVEF 40% 4.sob secondary to CHF Recc: -Tele -serial ecg's -Continue coreg/Benazepril -Would start low dose lasix and follow volume -Continue asa Problems: Consultation Date/Type/Reason Admit Date/Time Jun 23, 2017 at 22:24 Initial Consult Date 06/26/17 Type of Consultation: cardiology Reason for Consultation CHF Referring Provider: EZEQUIEL FLORES Exam/Review of Systems Vital Signs Vitals Vital Signs Date Time Temp Pulse Resp B/P Pulse Ox O2 Delivery O2 Flow Rate FiO2 06/26/17 16:39 98.0 77 18 133/68 98 Room Air 06/25/17 20:00 2.0 Intake and Output 06/25/17 06/25/17 06/26/17 15:00 23:00 07:00 Intake Total 800 ml 300 ml Balance 800 ml 300 ml Exam Review of Systems: CONSTITUTIONAL: No fevers, chills. PULMONARY: No sob CARDIOVASCULAR: No chest pain/palpitations GASTROINTESTINAL: No nausea/vomiting. GENITOURINARY: No hematuria/dysuria. MUSCULOSKELETAL: No myagias/arthalgias. PSYCHIATRIC: The patient denies depression. NEUROLOGIC: No weakness Constitutional: alert Psych: no complaints Head: normocephalic ENMT: mucosa pink and moist Neck: jvd, supple Respiratory: diminished breath sounds (at bases/B) Cardiovascular: regular rate and rhythm Gastrointestinal: non-tender, soft Musculoskeletal: muscle tone (normal) Extremities: edema (none) Neurological: other (No focal deficits) Results Result Diagram: 06/26/17 0810 06/26/17 0810 Results 24 hrs Laboratory Tests Test 06/26/17 08:10 White Blood Count 7.7 Red Blood Count 5.13 Hemoglobin 13.5 L Hematocrit 42.4 Mean Corpuscular Volume 82.7 Mean Corpuscular Hemoglobin 26.3 L Mean Corpuscular Hemoglobin Concent 31.8 L Red Cell Distribution Width 16.6 H Platelet Count 267 Mean Platelet Volume 10.7 H Neutrophils % 63.5 Lymphocytes % 21.6 Monocytes % 9.8 Eosinophils % 3.8 Basophils % 0.9 Nucleated Red Blood Cells % 0.0 Neutrophils # 4.9 Lymphocytes # 1.7 Monocytes # 0.8 Eosinophils # 0.3 Basophils # 0.1 Nucleated Red Blood Cells # 0.0 Sodium Level 139 Potassium Level 4.4 Chloride Level 105 Carbon Dioxide Level 25 Anion Gap 13 Blood Urea Nitrogen 26 H Creatinine 1.04 Glucose Level 100 Calcium Level 9.2 Phosphorus Level 3.9 Magnesium Level 2.0 Albumin 3.7 Medications Medications Current Medications Ondansetron HCl (Zofran Tab) 4 mg Q6H PRN PO NAUSEA AND/OR VOMITING; Start 06/28 at 23:00 Nitroglycerin (Nitroglycerin (Sl Tab) 0.4 Mg) 1 tab Q5M PRN SL CHEST PAIN; Start 06/23/17 at 23:00 Acetaminophen (Tylenol Tab) 650 mg Q6H PRN PO PAIN LEVEL 1-3 OR FEVER; Start 06/23/17 at 23:00 Lisinopril (Zestril) 10 mg DAILY PO Last administered on 06/26/17 08:31; Admin Dose 10 MG; Start 06/24/17 at 09:00 Aspirin (Aspirin) 81 mg DAILY PO Last administered on 06/26/17 08:32; Admin Dose 81 MG; Start 06/25/17 at 09:00 Carvedilol (Coreg) 6.25 mg BID PO Last administered on 06/26/17 08:31; Admin Dose 6.25 MG; Start 06/24/17 at 21:00 ANA MARÍA MATHEW Jun 26, 2017 17:54
[2017-06-26] MEDS: FUROSEMIDE 20 MG TAB PO SCH (21:00)
[2017-06-27] VITALS (13 sets, daily range): BP systolic 125–153; BP diastolic 67–79; PULSE 71–83; RESP 18–20
[2017-06-27 06:30] LABS: BASOPHIL # 0.1 10^3/ul (0.0-0.1); BASOPHILS % 0.8 % (0.0-2.0); EOSINOPHILS # 0.4 10^3/ul (0.0-0.5); EOSINOPHILS % 4.7 % (0.0-7.0); HEMATOCRIT 42.8 % (42.0-52.0); HEMOGLOBIN 13.7 g/dl (14.0-18.0); LYMPHOCYTES # 2.2 10^3/ul (0.8-2.9); LYMPHOCYTES % 26.5 % (15.0-51.0); MEAN CORPUSCULAR HEMOGLOBIN 26.7 pg (29.0-33.0); MEAN CORPUSCULAR VOLUME 83.3 fl (82.0-101.0); MEAN PLATELET VOLUME 10.3 fl (7.4-10.4); MONOCYTE # 0.8 10^3/ul (0.3-0.9); MONOCYTES % 10.1 % (0.0-11.0); NEUTROPHIL # 4.8 10^3/ul (1.6-7.5); NEUTROPHILS % 57.5 % (39.0-77.0); PLATELET COUNT 276 10^3/UL (140-415); RED BLOOD COUNT 5.14 10^6/ul (4.70-6.10); RED CELL DISTRIBUTION WIDTH 16.8 % (11.5-14.5); WHITE BLOOD COUNT 8.3 10^3/ul (4.8-10.8)
[2017-06-27 07:05] LABS: ALBUMIN 3.7 g/dl (3.3-4.9); CALCIUM 9.6 mg/dl (8.4-10.2); CREATININE 1.17 mg/dl (0.61-1.24); MAGNESIUM 1.9 mg/dl (1.7-2.5); PHOSPHORUS 4.1 mg/dl (2.5-4.9); POTASSIUM 4.7 mmol/L (3.5-5.1)
[2017-06-27] MEDS ORDERED: FUROSEMIDE 20 MG TAB PO SCH (09:00)
[2017-06-27] MEDS: ASPIRIN 81 MG TAB PO SCH (09:41)
[2017-06-27] MEDS: FUROSEMIDE 20 MG TAB PO SCH (09:41)
[2017-06-27] MEDS: LISINOPRIL 10 MG TAB PO SCH (09:42)
--- NOTE | 2017-06-27 11:56 | CONS ---
Date/Time of Note Date/Time of Note DATE: 06/27/17 TIME: 11:55 Assessment/Plan Assessment/Plan Additional Assessment/Plan 1. Shortness of breath - new onset of dyspnea with elevated BNP. Stress test with EF 40%, negative ischemia - med rx advised - better overall. 2. Shortness of breath, likely multifactorial. CHF is suspected. Continue diuresis. The patient is on Lasix. MUCH BETTER now. 3. Congestive heart failure, acute on chronic. DIAST HF - EF 55%. 4. History of positive tobacco use, discontinued in 1984. 5. History of back pain, defer to primary team. Consultation Date/Type/Reason Admit Date/Time Jun 23, 2017 at 22:24 Type of Consultation: cardiology Referring Provider: EZEQUIEL FLORES 24 HR Interval Summary Free Text/Dictation NO acute events - no ectopy on tele - improved CHF. ROS: No fever, no chills, no nausea, no vomiting, no diarrhea/constipation No recent weight changes No chest pain, no PND, no orthopnea No dizziness, blurred vision No thirst, no heat or cold intolerance Exam/Review of Systems Vital Signs Vitals Vital Signs Date Time Temp Pulse Resp B/P Pulse Ox O2 Delivery O2 Flow Rate FiO2 06/27/17 11:40 98.1 79 18 130/70 98 06/26/17 16:39 Room Air 06/25/17 20:00 2.0 Intake and Output 06/26/17 06/26/17 06/27/17 14:59 22:59 06:59 Intake Total 480 ml Balance 480 ml Exam General: WN/WD/NAD, AOx 3 HEENT: Unicetric/atraumatic/EOMI (follow commands) NECK: JVD elevated, no thyromegaly Lymph: no lymphadenopathy HEART: regular with no S3, II/ systolic murmur at apex LUNGS: Coarse sounds ABD: soft, NT, ND, +BS : Intact Neuro: non focal SKIN: chronic changes EXT: trace edema Results Result Diagram: 06/27/17 0557 06/27/17 0557 Results 24 hrs Laboratory Tests Test 06/27/17 05:57 White Blood Count 8.3 Red Blood Count 5.14 Hemoglobin 13.7 L Hematocrit 42.8 Mean Corpuscular Volume 83.3 Mean Corpuscular Hemoglobin 26.7 L Mean Corpuscular Hemoglobin Concent 32.0 Red Cell Distribution Width 16.8 H Platelet Count 276 Mean Platelet Volume 10.3 Neutrophils % 57.5 Lymphocytes % 26.5 Monocytes % 10.1 Eosinophils % 4.7 Basophils % 0.8 Nucleated Red Blood Cells % 0.0 Neutrophils # 4.8 Lymphocytes # 2.2 Monocytes # 0.8 Eosinophils # 0.4 Basophils # 0.1 Nucleated Red Blood Cells # 0.0 Sodium Level 140 Potassium Level 4.7 Chloride Level 101 Carbon Dioxide Level 29 Anion Gap 15 Blood Urea Nitrogen 22 H Creatinine 1.17 Glucose Level 94 Calcium Level 9.6 Phosphorus Level 4.1 Magnesium Level 1.9 Albumin 3.7 Medications Medications Current Medications Ondansetron HCl (Zofran Tab) 4 mg Q6H PRN PO NAUSEA AND/OR VOMITING; Start 06/28 at 23:00 Nitroglycerin (Nitroglycerin (Sl Tab) 0.4 Mg) 1 tab Q5M PRN SL CHEST PAIN; Start 06/23/17 at 23:00 Acetaminophen (Tylenol Tab) 650 mg Q6H PRN PO PAIN LEVEL 1-3 OR FEVER; Start 06/23/17 at 23:00 Lisinopril (Zestril) 10 mg DAILY PO Last administered on 06/27/17 09:42; Admin Dose 10 MG; Start 06/24/17 at 09:00 Aspirin (Aspirin) 81 mg DAILY PO Last administered on 06/27/17 09:41; Admin Dose 81 MG; Start 06/25/17 at 09:00 Carvedilol (Coreg) 6.25 mg BID PO Last administered on 06/27/17 09:42; Admin Dose 6.25 MG; Start 06/24/17 at 21:00 Furosemide (Lasix) 20 mg DAILY PO Last administered on 06/27/17 09:41; Admin Dose 20 MG; Start 06/26/17 at 20:00 ROBERTO CARLOS SAPP MD Jun 27, 2017 11:56
--- NOTE | 2017-06-27 13:14 | PN ---
Date/Time of Note Date/Time of Note DATE: 06/27/17 TIME: 13:12 Assessment/Plan VTE Prophylaxis VTE Prophylaxis Intervention: SCD's Lines/Catheters IV Catheter Type (from [facility]): Saline Lock Urinary Cath still in place: No Assessment/Plan Assessment/Plan 1. Acute on chronic congestive heart failure- improving - Cardiology on board and recommendations appreciated. continue on aspirin, BB , and lasix - ECHO shows EF 55% - Lexiscan showed moderate-sized nonreversible perfusion defect in the inferoapical, inferior and inferolateral lucero. EF 40%. - BNP 1800 - monitor 1/0 and daily weights 2. SOB- resolved 3. History of tobacco abuse 4. Disposition - Continue diuresing and if creatinine remains stable will d/c home in the am. Subjective 24 Hr Interval Summary Free Text/Dictation Patient doing well and no new complaints. No acute overnight events. Patient continues to diurese well but creatinine slowing increasing. Exam/Review of Systems Vital Signs Vitals Vital Signs Date Time Temp Pulse Resp B/P Pulse Ox O2 Delivery O2 Flow Rate FiO2 06/27/17 12:06 74 06/27/17 11:40 98.1 18 130/70 98 06/26/17 16:39 Room Air 06/25/17 20:00 2.0 Intake and Output 06/26/17 06/26/17 06/27/17 15:00 23:00 07:00 Intake Total 480 ml Balance 480 ml Exam General: Patient resting comfortable. in no acute respiratory distress. HEENT: NC/AT, PERRL, EOM intact Neck: Supple Lungs: Clear to auscultation bilaterally, no crackles rales or wheezing Heart: Normal S1-S2, Regular rhythm and rate, no murmurs appreciated Abdomen: Soft , nontender, nondistended , bowel sounds are present. No guarding no rebound tenderness Extremities: Normal to inspection, no edema no cyanosis Neurologic: Normal mental status, no focal weakness Results Result Diagram: 06/27/17 0557 06/27/17 0557 Results 24 hrs Laboratory Tests Test 06/27/17 05:57 White Blood Count 8.3 Red Blood Count 5.14 Hemoglobin 13.7 L Hematocrit 42.8 Mean Corpuscular Volume 83.3 Mean Corpuscular Hemoglobin 26.7 L Mean Corpuscular Hemoglobin Concent 32.0 Red Cell Distribution Width 16.8 H Platelet Count 276 Mean Platelet Volume 10.3 Neutrophils % 57.5 Lymphocytes % 26.5 Monocytes % 10.1 Eosinophils % 4.7 Basophils % 0.8 Nucleated Red Blood Cells % 0.0 Neutrophils # 4.8 Lymphocytes # 2.2 Monocytes # 0.8 Eosinophils # 0.4 Basophils # 0.1 Nucleated Red Blood Cells # 0.0 Sodium Level 140 Potassium Level 4.7 Chloride Level 101 Carbon Dioxide Level 29 Anion Gap 15 Blood Urea Nitrogen 22 H Creatinine 1.17 Glucose Level 94 Calcium Level 9.6 Phosphorus Level 4.1 Magnesium Level 1.9 Albumin 3.7 Medications Medications Current Medications Ondansetron HCl (Zofran Tab) 4 mg Q6H PRN PO NAUSEA AND/OR VOMITING; Start 06/28 at 23:00 Nitroglycerin (Nitroglycerin (Sl Tab) 0.4 Mg) 1 tab Q5M PRN SL CHEST PAIN; Start 06/23/17 at 23:00 Acetaminophen (Tylenol Tab) 650 mg Q6H PRN PO PAIN LEVEL 1-3 OR FEVER; Start 06/23/17 at 23:00 Lisinopril (Zestril) 10 mg DAILY PO Last administered on 06/27/17 09:42; Admin Dose 10 MG; Start 06/24/17 at 09:00 Aspirin (Aspirin) 81 mg DAILY PO Last administered on 06/27/17 09:41; Admin Dose 81 MG; Start 06/25/17 at 09:00 Carvedilol (Coreg) 6.25 mg BID PO Last administered on 06/27/17 09:42; Admin Dose 6.25 MG; Start 06/24/17 at 21:00 Furosemide (Lasix) 20 mg DAILY PO Last administered on 06/27/17 09:41; Admin Dose 20 MG; Start 06/26/17 at 20:00 RANDALL BOO MD Jun 27, 2017 13:14
[2017-06-28] VITALS (7 sets, daily range): BP systolic 128–135; BP diastolic 50–67; PULSE 73–90; RESP 20–70
[2017-06-28 07:57] LABS: CALCIUM 9.4 mg/dl (8.4-10.2); CREATININE 1.16 mg/dl (0.61-1.24); MAGNESIUM 2.2 mg/dl (1.7-2.5); PHOSPHORUS 4.2 mg/dl (2.5-4.9); POTASSIUM 4.7 mmol/L (3.5-5.1)
[2017-06-28] MEDS: FUROSEMIDE 20 MG TAB PO SCH (09:03)
[2017-06-28] MEDS: ASPIRIN 81 MG TAB PO SCH (09:04)
[2017-06-28] MEDS: LISINOPRIL 10 MG TAB PO SCH (09:04)
--- NOTE | 2017-06-28 09:22 | CONS ---
Date/Time of Note Date/Time of Note DATE: 06/28/17 TIME: 09:21 Assessment/Plan Assessment/Plan Additional Assessment/Plan 1. Shortness of breath - new onset of dyspnea with elevated BNP. Stress test with EF 40%, negative ischemia - med rx advised - better overall. 2. Shortness of breath, likely multifactorial. CHF is suspected. Continue diuresis. The patient is on Lasix. MUCH BETTER now. Med rrx. 3. Congestive heart failure, acute on chronic. DIAST HF - EF 55%. - improved. 4. History of positive tobacco use, discontinued in 1984. 5. History of back pain, defer to primary team. Consultation Date/Type/Reason Admit Date/Time Jun 23, 2017 at 22:24 Type of Consultation: cardiology Referring Provider: EZEQUIEL FLORES 24 HR Interval Summary Free Text/Dictation Much better - dispo to follow. ROS: No fever, no chills, no nausea, no vomiting, no diarrhea/constipation No recent weight changes No chest pain, no PND, no orthopnea No dizziness, blurred vision No thirst, no heat or cold intolerance Exam/Review of Systems Vital Signs Vitals Vital Signs Date Time Temp Pulse Resp B/P Pulse Ox O2 Delivery O2 Flow Rate FiO2 06/28/17 09:00 98.2 79 134/50 06/28/17 03:57 20 99 06/26/17 16:39 Room Air 06/25/17 20:00 2.0 Intake and Output 06/27/17 06/27/17 06/28/17 15:00 23:00 07:00 Intake Total 300 ml 1320 ml Balance 300 ml 1320 ml Exam General: WN/WD/NAD, AOx 3 HEENT: Unicetric/atraumatic/EOMI (follows commands) NECK: JVD elevated, no thyromegaly Lymph: no lymphadenopathy HEART: regular with no S3, II/ systolic murmur at apex LUNGS: Coarse sounds ABD: soft, NT, ND, +BS : Intact Neuro: non focal SKIN: chronic changes EXT: trace edema Results Result Diagram: 06/27/17 0557 06/28/17 0653 Results 24 hrs Laboratory Tests Test 06/28/17 06:53 Sodium Level 139 Potassium Level 4.7 Chloride Level 102 Carbon Dioxide Level 26 Anion Gap 16 Blood Urea Nitrogen 23 H Creatinine 1.16 Glucose Level 92 Calcium Level 9.4 Phosphorus Level 4.2 Magnesium Level 2.2 Albumin 4.0 Medications Medications Current Medications Ondansetron HCl (Zofran Tab) 4 mg Q6H PRN PO NAUSEA AND/OR VOMITING; Start 06/28 at 23:00 Nitroglycerin (Nitroglycerin (Sl Tab) 0.4 Mg) 1 tab Q5M PRN SL CHEST PAIN; Start 06/23/17 at 23:00 Acetaminophen (Tylenol Tab) 650 mg Q6H PRN PO PAIN LEVEL 1-3 OR FEVER; Start 06/23/17 at 23:00 Lisinopril (Zestril) 10 mg DAILY PO Last administered on 06/28/17 09:04; Admin Dose 10 MG; Start 06/24/17 at 09:00 Aspirin (Aspirin) 81 mg DAILY PO Last administered on 06/28/17 09:04; Admin Dose 81 MG; Start 06/25/17 at 09:00 Carvedilol (Coreg) 6.25 mg BID PO Last administered on 06/28/17 09:04; Admin Dose 6.25 MG; Start 06/24/17 at 21:00 Furosemide (Lasix) 20 mg DAILY PO Last administered on 06/28/17 09:03; Admin Dose 20 MG; Start 06/26/17 at 20:00 ROBERTO CARLOS SAPP MD Jun 28, 2017 09:22
--- NOTE | 2017-06-28 12:02 | PN ---
Date/Time of Note Date/Time of Note DATE: 06/28/17 TIME: 12:01 Assessment/Plan VTE Prophylaxis VTE Prophylaxis Intervention: SCD's Lines/Catheters IV [facility] Saline Lock Urinary Cath still in place: No Assessment/Plan Assessment/Plan 1. Acute on chronic congestive heart failure- improving - Cardiology on board and recommendations appreciated. continue on aspirin, BB , and lasix - ECHO shows EF 55% - Lexiscan showed moderate-sized nonreversible perfusion defect in the inferoapical, inferior and inferolateral lucero. EF 40%. - BNP 1800 - monitor 1/0 and daily weights 2. SOB- resolved 3. History of tobacco abuse 4. Disposition - Stable for discharge home Subjective 24 Hr Interval Summary Free Text/Dictation Patient doing well and has no new complaints. Denies any further episodes of chest pain, shortness of breath, palpitations, or abdominal issues. Exam/Review of Systems Vital Signs Vitals Vital Signs Date Time Temp Pulse Resp B/P Pulse Ox O2 Delivery O2 Flow Rate FiO2 06/28/17 09:00 98.2 79 134/50 06/28/17 03:57 20 99 06/26/17 16:39 Room Air 06/25/17 20:00 2.0 Intake and Output 06/27/17 06/27/17 06/28/17 14:59 22:59 06:59 Intake Total 300 ml 1320 ml Balance 300 ml 1320 ml Exam General: Patient resting comfortable. in no acute respiratory distress. HEENT: NC/AT, PERRL, EOM intact Neck: Supple Lungs: Clear to auscultation bilaterally, no crackles rales or wheezing Heart: Normal S1-S2, Regular rhythm and rate, no murmurs appreciated Abdomen: Soft , nontender, nondistended , bowel sounds are present. No guarding no rebound tenderness Extremities: Normal to inspection, no edema no cyanosis Neurologic: Normal mental status, no focal weakness Results Result Diagram: 06/27/17 0557 06/28/17 0653 Results 24 hrs Laboratory Tests Test 06/28/17 06:53 Sodium Level 139 Potassium Level 4.7 Chloride Level 102 Carbon Dioxide Level 26 Anion Gap 16 Blood Urea Nitrogen 23 H Creatinine 1.16 Glucose Level 92 Calcium Level 9.4 Phosphorus Level 4.2 Magnesium Level 2.2 Albumin 4.0 Medications Medications Current Medications Ondansetron HCl (Zofran Tab) 4 mg Q6H PRN PO NAUSEA AND/OR VOMITING; Start 06/28 at 23:00 Nitroglycerin (Nitroglycerin (Sl Tab) 0.4 Mg) 1 tab Q5M PRN SL CHEST PAIN; Start 06/23/17 at 23:00 Acetaminophen (Tylenol Tab) 650 mg Q6H PRN PO PAIN LEVEL 1-3 OR FEVER; Start 06/23/17 at 23:00 Lisinopril (Zestril) 10 mg DAILY PO Last administered on 06/28/17 09:04; Admin Dose 10 MG; Start 06/24/17 at 09:00 Aspirin (Aspirin) 81 mg DAILY PO Last administered on 06/28/17 09:04; Admin Dose 81 MG; Start 06/25/17 at 09:00 Carvedilol (Coreg) 6.25 mg BID PO Last administered on 06/28/17 09:04; Admin Dose 6.25 MG; Start 06/24/17 at 21:00 Furosemide (Lasix) 20 mg DAILY PO Last administered on 06/28/17 09:03; Admin Dose 20 MG; Start 06/26/17 at 20:00 RANDALL BOO MD Jun 28, 2017 12:01
[2017-06-28] MEDS ORDERED: LAS20 PO (12:44)
[2017-06-28] MEDS ORDERED: LISI10TA2 PO (12:44)
[2017-06-28] MEDS ORDERED: CARV6.2579 PO (12:44)
[2017-06-28] MEDS ORDERED: ASPI81TA3 PO (12:44)
--- NOTE | 2017-06-28 12:48 | DS ---
Date/Time of Note Date/Time of Note DATE: 06/28/17 TIME: 12:48 Discharge Summary Admission/Discharge Info Admit Date/Time Jun 23, 2017 at 22:24 Discharge Date/Time Discharge Diagnosis 1. Acute on chronic diastolic congestive heart failure- improved 2. SOB- resolved 3. History of tobacco abuse Patient Condition: Stable Consults Cardiology Procedures PROCEDURE: ABDOMINAL - 3 VIEWS CLINICAL INDICATION: 62-year-old male with lower abdominal pain. TECHNIQUE: AP supine and upright views of the abdomen were obtained. The images reviewed on a PACS workstation. COMPARISON: None. FINDINGS: The partially visualized lung bases are unremarkable. There is no free air beneath the hemidiaphragms. The lateral aspect of the abdomen are not completely on the radiograph there is prominent gas within the transverse colon without an obstructive pattern. No significant air-fluid levels are noted. Phleboliths are present within the pelvis. Mild degenerative changes are seen within the spine. IMPRESSION: 1. No evidence for bowel obstruction. 2. Degenerative changes within the spine. PROCEDURE: XR Chest. CLINICAL INDICATION: Chest Pain. TECHNIQUE: Single frontal view of the chest was obtained COMPARISON: None FINDINGS: The heart is enlarged. There is mild pulmonary vascular congestion. No focal consolidations, pleural effusions, or pneumothorax. Chronic appearing left-sided rib fractures are present. Degenerative changes of the spine and shoulder joints are noted. IMPRESSION: 1. Cardiomegaly with mild pulmonary vascular congestion PROCEDURE: Lexiscan myocardial perfusion study CLINICAL INDICATION: 62 -year-old patient complaining of chest pain. TECHNIQUE: Lexiscan 0.4 mg intravenously separate acquisition gated myocardial perfusion SPECT using Tc 99m Myoview 29.6 mCi intravenously at stress and Tc-99m Myoview, 10.8 mCi intravenously at rest was performed using the rest/stress sequence. Poststress Myoview SPECT images were obtained in the supine position. COMPARISON: No prior studies. FINDINGS: Perfusion images reveal a moderate size moderate in degree nonreversible perfusion defect in the inferoapical, inferior and inferolateral lucero. Lexiscan post stress gated SPECT images demonstrate mild hypokinesis of the left ventricle. IMPRESSION: 1. The type and distribution of the scintigraphic abnormalities are most consistent with a moderate-sized nonreversible perfusion defect in the inferoapical, inferior and inferolateral lucero. 2. Mild hypokinesis of the left ventricle. 3. The left ventricle ejection fraction at stress is 40%. Hx of Present Illness This 62-year-old male presents for increasing shortness of breath for the last 2 days. He is taking Advil for chronic bilateral leg pain but does not have any other medications does not have primary care follow-up. As of breath is worse when laying down and on exertion. Denies any swelling in his feet. Does not have any prior history of cardiac issues. He also was coughing, non productive. Denies any fevers allergies: nkda meds: advil Exam General: Patient is well-developed well-nourished The patient is alert oriented -3 lying comfortably in bed. HEENT: Atraumatic, normocephalic. The pupils are equal, round and reactive. Extraocular motor are intact Neck: Supple with full range of motion. No rigidity or meningismus Chest: Nontender Lungs: Clear to auscultation bilaterally no crackles rales or wheezing Heart: Normal S1-S2, Regular rhythm and rate, no overt murmurs appreciated Abdomen: Soft , nontender, nondistended , bowel sounds are present. No guarding no rebound tenderness , No masses or organomegaly. No costovertebral temporal angle mass Extremities: Normal to inspection, no edema no cyanosis Neurologic: Normal mental status, speech normal, cranial nerves II through XII are intact, motor and sensory are intact, no focal weakness Hospital Course Patient was admitted to telemetry for further cardiac workup given possible findings of new onset CHF. Patient found to have BNP 1800 and CXR was consistent with congestion. patient was given IV lasix and diuresed well. Patient was seen by cardiology who continue medications and performed cardiac stress test. Serial troponins were negative and stress did not show any acute ischemia with EF 40%. Patient was continue on PO lasix and respiratory issues resolved and was saturating well on room air. Renal function remained normal as well and patient was discharged in stable condition with medication prescriptions and outpatient follow up recommendations. Home Meds Active Scripts Furosemide (Lasix) 20 Mg Tab, 20 MG PO DAILY for 30 Days, #30 TAB Prov:RANDALL BOO MD 06/28/17 Aspirin (Aspirin) 81 Mg Chew, 81 MG PO DAILY for 30 Days, #30 TAB Prov:RANDALL BOO MD 06/28/17 Lisinopril* (Lisinopril*) 10 Mg Tablet, 10 MG PO DAILY for 30 Days, #30 TAB Prov:RANDALL BOO MD 06/28/17 Carvedilol* (Carvedilol*) 6.25 Mg Tablet, 6.25 MG PO BID for 30 Days, #60 TAB Prov:RANDALL BOO MD 06/28/17 Follow-up Plan 1. Follow up with your Primary care physician in 1 week 2. Take all medications as prescribed 3. Follow up with Cardiology in 2-4 weeks 4. Follow a low salt, low fat diet 5. If symptoms return, please come to the ED Primary Care Provider Care Physician No Primary Time spent on discharge: > 30 minutes Pending Labs Laboratory Tests Test 06/28/17 06:53 Sodium Level 139mmol/L (135-144) Potassium Level 4.7mmol/L (3.5-5.1) Chloride Level 102mmol/L (97-110) Carbon Dioxide Level 26mmol/L (21-31) Anion Gap 16 (8-16) Blood Urea Nitrogen 23mg/dl (7-20) Creatinine 1.16mg/dl (0.61-1.24) Glucose Level 92mg/dl (70-220) Calcium Level 9.4mg/dl (8.4-10.2) Phosphorus Level 4.2mg/dl (2.5-4.9) Magnesium Level 2.2mg/dl (1.7-2.5) Albumin 4.0g/dl (3.3-4.9) RANDALL BOO MD Jun 28, 2017 12:48
--- NOTE | 2017-06-28 12:48 | PDOCDIS ---
Discharge Instructions DIAGNOSIS Discharge Diagnosis 1. Acute on chronic diastolic congestive heart failure- improved 2. SOB- resolved 3. History of tobacco abuse CONDITION Patient Condition: Stable HOME CARE INSTRUCTIONS: Diet Instructions: Low Fat /CholesterolSpecial Diet: cardiac ACTIVITY: Activity Restrictions: No Restrictions FOLLOW UP/APPOINTMENTS Follow-up Plan 1. Follow up with your Primary care physician in 1 week 2. Take all medications as prescribed 3. Follow up with Cardiology in 2-4 weeks 4. Follow a low salt, low fat diet 5. If symptoms return, please come to the ED REFERRALS Other Referrals Ángel Villanueva MD Specialty: Cardiology Office Address [id number] [place] [id number] Office RANDALL BOO MD Jun 28, 2017 12:48
== END 2017-06-28 15:30 | disposition home or self-care (01) | DRG 293 ==
LOC: E/R 15:57 → MS4 22:24
PROVIDERS: ADMIT Family Medicine; ATTEND Family Medicine
DX: I50.33 Acute on chronic diastolic (congestive) heart failure (principal); Z72.0 Tobacco use
CPT/HCPCS: 36415; 71010; 74010; 78452; 80048; 80053; 80061; 80069; 80076; 81001; 81003; 82550; 82553; 83036; 83690; 83735; 83880; 84443; 84484; 85025; 93005; 93017; 93306; 96374; 96375; 96376; J1940; A9500; A9505; J2405; J2785

== ENCOUNTER 2017-07-21 19:34 | Inpatient (IN) | END 2017-07-23 16:58 | disposition home or self-care (01) | DRG 293 ==